=== PATIENT | female | born 1970 | race Caucasian/White ===

== ENCOUNTER 2017-09-27 00:19 | Observation (INO) ==
[2017-09-27] MEDS ORDERED: D5% in Lactated Ringers 1,000 ML IVC SCH (03:00)
[2017-09-27] MEDS ORDERED: *HR* LORazepam 2 MG/ML VIAL IVP ONE (03:13)
--- NOTE | 2017-09-27 03:45 | Internal Med History&Physical ---
Date of Encounter: 09/27/17 Time of Encounter: 03:42 Internal Medicine - H&P: HPI Chief complaint: Food stuck Admitted From: Intrahospital Transfer Plans for Post Hospital Care: Home History of present illness: Ms. Levine is a 47 year old woman with a history of anxiety disorder and esophageal spasms with prior episodes of food being stuck in her esophagus requiring endoscopic removal and dilation who presents on transfer from [place] where she presented stating that while she was eating chicken she felt that a piece was stuck in her chest and could not regurgitated back up and/ or does not go down and has been unable to keep anything down after that. She was not in acute distress and GI was consulted over the phone with the recommendation that she remain observed and will be seen in the morning for endoscopic removal. On my assessment she is lying comfortably in bed in no acute distress stating that she was previously prescribed diltiazem in the past for her esophageal spasms however she could not keep up with the frequency of dosing. She describes that pain and discomfort in the center of her chest and states that even though she tried to drink water hours ago it came back up and she could not keep it down. At this time she is just trying to remain calm and get some sleep. She denies abdominal pain at this time. Past Med Surg Social Fam HX - Past Medical History Medical history: GERD, hyperlipidemia, other Additional medical history: esophageal spasm Psychiatric history: anxiety, depression - Past Surgical History Surgical History: cholecystectomy Additional surgical history: lumbar fusion, c-s x2 - Social History Smoking Status: Former smoker Alcohol use: occasionally Drug use: none Internal Medicine - H&P: Meds Citalopram [CeleXA] 30 mg PO DAILY 09/26/17 [History] Omeprazole [PriLOSEC] 40 mg PO DAILY 09/26/17 [History] Simvastatin [Zocor] 30 mg PO DAILY 09/26/17 [History] 3 Allergy/AdvReac Type Severity Reaction Status Date / Time No Known Allergies Allergy Verified 09/26/17 21:29 All Systems PM: A 10-system review of systems was performed and is negative for pertinent findings except as documented above in the HPI. - Constitutional Vitals: Temp Pulse Resp BP Pulse Ox 98.3 F 73 14 125/86 96 09/27/17 02:02 09/27/17 02:02 09/27/17 02:02 09/27/17 02:02 09/27/17 02:02 Exam: Vitals: Reviewed General: Well developed female lying comfortably in bed in no acute distress Skin: Warm and supple HEENT: Moist mucous membranes. No conjunctivae pallor. Neck: No lymphadenopathy. No JVD. No carotid bruits. No palpable thyroid. Chest: Normal thoracic expansion. Normal breath sounds. Clear to auscultation. Heart: Normal S1 & S2; rhythmic. No rubs or murmurs. Abdomen: Non-distended, soft and non-tender to palpation. Extremities: No clubbing, cyanosis or edema. No calf tenderness. Normal distal pulses. Neurological: Awake, alert and oriented to person, place and time. No focal deficits. Psych: Affect appropriate. - Assessment and plan (1) Esophageal foreign body Current Visit: Yes Status: Acute Assessment and plan: Known esophageal spasms in the past and has suffered impactions previously and 2 dilatations. GI consult requested for endoscopy. Will obtain routine basic labs pre-procedure. May require calcium channel dean or sildenafil moving forward. Qualifiers: Encounter type: initial encounter Qualified Code(s): T18.108A - Unspecified foreign body in esophagus causing other injury, initial encounter (2) Dyspepsia Current Visit: Yes Status: Chronic Assessment and plan: Will place on IV PPI pending removal of foreign body. (3) Anxiety Current Visit: Yes Status: Chronic Assessment and plan: In the interim she cannot be on oral medications and she feels anxious. Will administer 0.5mg IVP lorazepam to help her stay calm. (4) Hyperlipemia Current Visit: Yes Status: Chronic Assessment and plan: On simvastatin at home which can be resumed upon discharge. Qualifiers: Hyperlipidemia type: unspecified Qualified Code(s): E78.5 - Hyperlipidemia , unspecified (5) DVT prophylaxis Current Visit: Yes Status: Acute Assessment and plan: SubQ heparin ordered. - Time Spent With Patient Total time spent is greater than 50% in coordination of care (as documented) at patient's floor/unit and/or counseling patient: 25 - 35 minutes
[2017-09-27] MEDS ORDERED: *HR* Nalbuphine 10 MG/ML AMPUL IVP ONE (04:13)
[2017-09-27 05:51] LABS: Basophils # 0.1 K/mcL (0.0-0.2); Basophils % 0.7 %; Eosinophils # 0.1 K/mcL (0.0-0.6); Hematocrit 37.2 % (35.3-44.9); Hemoglobin 11.8 g/dL (11.5-15.4); Immature Granulocytes % 0.3 % (0-4); Lymphocytes # 2.6 K/mcL (0.6-4.6); Lymphocytes % 23.2 %; Mean Corpuscular HGB Conc 31.7 g/dL (31.6-35.5); Mean Corpuscular Hemoglobin 26.3 pg (28.0-33.3); Mean Platelet Volume 10.8 fL (9.4-12.4); Monocytes # 0.5 K/mcL (0.0-1.3); Monocytes % 4.7 %; Neutrophils # 7.9 K/mcL (1.6-8.9); Platelet Count 382 K/mcL (140-400); Red Blood Count 4.48 M/mcL (3.82-4.97); Red Cell Distribution Width 13.7 % (11.5-14.5); Segmented Neutrophils % 70.1 %
[2017-09-27 05:56] LABS: INR 1.1; Prothrombin Time 12.2 Seconds (9.4-12.1)
[2017-09-27 05:59] LABS: Activated Partial Thrombo Time 33.4 Seconds (26.0-36.0)
[2017-09-27] MEDS ORDERED: *HR* Heparin 5,000 UNIT/ML VIAL SQ SCH (06:00)
--- NOTE | 2017-09-27 06:05 | Anesthesia Evaluation PreOp ---
Date of Encounter: 09/27/17 Time of Encounter: 06:02 - Past History Planned Operation: EGD Cardiac History: Denies any Significant Hx ( GERD, hyperlipidemia, other Additional medical history: esophageal spasm Psychiatric history: anxiety, depression - Past Surgical History Surgical History: cholecystectomy Additional surgical history: lumbar fusion, c-s x2 - Social History Smoking Status: Former smoker Alcohol use: occasionally), Hyperlipidemia Pulmonary History: Former smoker INTERNAL MEDICINE DOCTOR History: Denies Any Significant HX Other Medical History: GERD, Other (esophageal spasms, obese) Anesthesia History: No Prior Anesthetic Complications, Past Anesthesia ( cholecystectomy, lumbar fusion, c-s x2) : No Test: Negative (09/27/17) Alcohol Use: occasionally Drug use: none Medications and Allergies Citalopram [CeleXA] 30 mg PO DAILY 09/26/17 [History] Omeprazole [PriLOSEC] 40 mg PO DAILY 09/26/17 [History] Simvastatin [Zocor] 30 mg PO DAILY 09/26/17 [History] 3 Allergy/AdvReac Type Severity Reaction Status Date / Time No Known Allergies Allergy Verified 09/26/17 21:29 - Meds/Allergy Pre-op Review Medications Reviewed: Yes Allergies Reviewed: Yes Beta Blockers on Current Med List: No Anesthesia Results - Labs 09/27/17 05:06 Laboratory Tests 09/27/17 06:24 Urine Test Negative Anesthesia Exam Vital Signs/O2 Sat, Most Current Temp Pulse Resp BP Pulse Ox 98.3 F 73 14 125/86 96 09/27/17 02:02 09/27/17 02:02 09/27/17 02:02 09/27/17 02:02 09/27/17 02:02 - HEENT Pupil (Motor): Pupils equal, EOMI Mallampati: II Teeth: Normal Oral Opening: Greater than 3 - INTERNAL MEDICINE DOCTOR LOC: Oriented INTERNAL MEDICINE DOCTOR Motor: Normal RUE, Normal LUE, Normal RLE, Normal LLE, Normal Face INTERNAL MEDICINE DOCTOR Sensory: Normal: RUE, LUE, RLE, LLE, Face - Cardiac Rhythm: Regular Murmur: None JVD: No Carotid Bruit: No - Pulmonary Breath Sounds: bilateral Clear Respiratory Effort: Symmetrical Anesthesia Assess/Plan ASA Score: 2 Modified Morelia Scale for Level of Consciousness: Cooperative, oriented, and tranquil Anesthetic Plan: MAC Autologous Blood: Yes Monitoring Plan: Standard Monitors Recovery Plan: Other
[2017-09-27] MEDS ORDERED: *HR* Propofol 200 MG/20 ML VIAL IVP ONE (06:26)
[2017-09-27] MEDS ORDERED: Lidocaine -MPF 2% 2 ML VIAL ONE (06:44)
[2017-09-27] MEDS ORDERED: Ondansetron 4 MG/2 ML VIAL ONE (07:02)
[2017-09-27] MEDS ORDERED: Dexamethasone 4 MG/ML VIAL ONE (07:02)
--- NOTE | 2017-09-27 07:19 | Anesthesia Evaluation Post Op ---
Date of Encounter: 09/27/17 Time of Encounter: 07:18 - Vital Signs Vital Signs: HR-69 BP-91/53 R-16 Sat-98 - Lungs Lungs: Clear Ascult./Percussion - Airway Airway: Non-obstructed - Cardiovascular Regular Rate - Mental Status Mental Status: Alert & Oriented, Answers Appropriately - Pain Pain Scale: 0 Pain Scale used: Numeric (1 - 10) - Nausea Vomiting Nausea Vomiting: Not Present - Hydration Hydration: NPO, Has not voided - Discharge PostOp Status: Transfer Patient to floor
[2017-09-27 07:22] LABS: BUN/Creatinine Ratio 13 (6-26); Blood Urea Nitrogen 10 mg/dL (6-20); Calcium 9.6 mg/dL (8.6-10.3); Carbon Dioxide 27 mEq/L (23-29); Chloride 105 mEq/L (98-107); Glucose 109 mg/dL (70-105); Osmolality,Calculated 286 (280-300); Potassium 3.8 mEq/L (3.5-5.1); Sodium 138 mEq/L (136-145); eGFR For Non-African Americans > 60 (> 60)
[2017-09-27] MEDS ORDERED: Pantoprazole 40 MG VIAL IVP SCH (09:00)
--- NOTE | 2017-09-27 09:01 | Gastroenterology Consult Note ---
Date of Encounter: 09/27/17 Time of Encounter: 06:00 - Assessment and plan (1) Esophageal foreign body Current Visit: Yes Status: Acute Qualifiers: Encounter type: initial encounter Qualified Code(s): T18.108A - Unspecified foreign body in esophagus causing other injury, initial encounter (2) Anxiety Current Visit: Yes Status: Chronic (3) Dyspepsia Current Visit: Yes Status: Chronic (4) Dysphagia Current Visit: Yes Status: Acute Qualifiers: Qualified Code(s): R13.10 - Dysphagia, unspecified - Time Spent With Patient Total time spent is greater than 50% in coordination of care (as documented) at patient's floor/unit and/or counseling patient: 25 - 35 minutes (Dysphagia) GI History of Present Illness - Data of Consult Patient: new to practice Requesting Physician: Constantine Hayes MD - Consult Narrative Reason for consult: Food stuck in the esophagus History of present illness: Ms. Levine is a 47 year old female who was in her usual state of health until about 1 PM yesterday when she ate a piece of chicken and found it and felt that it stuck. She eventually went to the [facility] where she was interviewed and given a milligram of glucagon with no success. She was able to keep her saliva down but unable to drink any water. This history of any chest pain fever or chills or shortness of breath. No history of dizziness or syncope. On close questions questioning she said that she have this she has had this happen a few times but every time she has been able to upchuck and get to the problem. She has had it appears two upper endoscopies in the past and with subsequent esophageal dilation - the most recent one about a year ago. She is on omeprazole 40 mg a day. Her Rao brought her to the emergency room at [facility] last night. I was called and requested patient be transferred to [place] to be admitted on for observation on the hospitalist service and arrangements were made to do an upper endoscopy at term 6:30 in the operating room this morning. She was in no acute distress throughout the night No history of hematemesis or melena no cardiac or respiratory or pulmonary history no problems with sedation/anesthesia in the past Past Med Surg Social Fam HX - Past Medical History Medical history: GERD, hyperlipidemia, other Additional medical history: esophageal spasm Psychiatric history: anxiety, depression - Past Surgical History Surgical History: cholecystectomy Additional surgical history: lumbar fusion, c-s x2 - Social History Smoking Status: Former smoker Alcohol use: occasionally Drug use: none - Gastrointestinal Gastrointestinal: Present: as per HPI Additional Comments: Dysphagia - Constitutional Constitutional: as per HPI, fatigue - Constitutional Vitals: Temp Pulse Resp BP Pulse Ox 98.0 F 70 16 129/66 97 09/27/17 06:46 09/27/17 06:46 09/27/17 06:46 09/27/17 06:46 09/27/17 06:46 General appearance: Present: cooperative, A&O X 3, pleasant, obese, answers questions appropriately - Head Head exam: Present: atraumatic, normal inspection, normocephalic - Eye Eye exam: Present: EOMI, normal appearance, PERRL, sclera anicteric - Neck Neck exam general surgery: Present: full ROM, normal inspection, supple, trachea midline - Respiratory Respiratory exam: Present: CTAB - Cardiovascular Cardiovascular exam: Present: RRR, +S1, +S2 - GI/Abdominal GI/Abdominal exam: Present: soft, no peritoneal signs Additional comments: Non tender, no organomegaly - Rectal Rectal exam: Present: deferred - Extremities Exam Extremities exam: Present: normal inspection - Neurological Exam Neurological exam: Present: alert, no focal deficits Results - Labs CBC & Chem 7: 09/27/17 05:06 09/27/17 05:06 Labs: Last Result Calcium 9.6 mg/dL (8.6-10.3) 09/27/17 05:06 Entire Visit Hgb 11.8 g/dL (11.5-15.4) 09/27/17 05:06 Hct 37.2 % (35.3-44.9) 09/27/17 05:06 PT 12.2 Seconds (9.4-12.1) H 09/27/17 05:06 - ABG ABG results: PT/INR, D-dimer PT 12.2 Seconds (9.4-12.1) H 09/27/17 05:06 Consult Discharge Plan - Plan Instructions: Upper Gastrointestinal Endoscopy (DC) Additional Instructions: Today at 06:30 am to remove foreign body (peice of chicken possibly) in the OR with MAC. Arrangements made already. Informed consent obtained for the same. Answered all questions. Risks and benefits explained. Referrals: Tenisha Diaz MD [Primary Care Provider] -
[2017-09-27 10:34] VITALS: BP 106/73
--- NOTE | 2017-09-27 11:17 | Discharge Summary ---
Orders not resulted at time of discharge: EGD report pending Date of Encounter: 09/27/17 Time of Encounter: 08:50 - Discharge Diagnosis (1) Esophageal foreign body Priority: Primary Status: Acute Comments: GI has evaluated the patient. S/p EGD - foreign body (piece of chicken) was pushed further into the stomach Esophageal dilatation not done today. Patient will need follow-up with GI as outpatient Stable for discharge home today. Return if symptoms worsen. Continue regular diet as tolerated Qualifiers: Encounter type: initial encounter Qualified Code(s): T18.108A - Unspecified foreign body in esophagus causing other injury, initial encounter (2) Dysphagia Priority: Primary Status: Acute Comments: Acute on chronic dysphagia - with h/o esophageal dilatation in the past Esophageal dilatation not done today. Outpatient follow-up with GI. Return if symptoms worsen. Qualifiers: Dysphagia type: esophageal phase Qualified Code(s): R13.10 - Dysphagia, unspecified (3) Anxiety Priority: Secondary Status: Chronic Comments: Chronic anxiety, stable Continue home dose of Celexa (4) Dyspepsia Priority: Secondary Status: Chronic Comments: Continue Protonix on discharge Hospital course: Ms. Levine is a 47 year old female with past medical history of esophageal spasm, anxiety, depression, GERD and hyperlipidemia. Patient presented to the ED with complaints of food being stuck in her esophagus. Patient stated that she was eating a piece of chicken and felt that it was stuck in her chest and could not regurgitated back up. Patient was unable to keep anything down after that. Patient was transferred from [place] for GI evaluation. GI has evaluated the patient. EGD was done today. Foreign-body was pulled further into the stomach. Patient did not require any further esophageal dilatation today. GI has recommended outpatient follow-up. Patient is now back to baseline. No other acute events or complications during her stay in the hospital. Patient's labs and vitals are all fairly within normal limits. Exam of this morning. Patient is awake and alert. Not in any distress. Denies chest pain or shortness of breath. Denies abdominal pain or vomiting. No fever. Hemodynamically stable. Patient states she feels better, wants to go home today. Patient and her family have been explained about her condition and plan of care in detail. They understood and agreed. No unanswered questions. Advised to return if symptoms worsen. Stable for discharge home today. Follow up with primary care physician and GI as outpatient. Discharge discussed with: patient, family - Time Spent with Patient Total time spent providing and/or coordinating discharge services: Less than 30 minutes - Discharge Medications Prescriptions: Pantoprazole Sodium 40 mg PO DAILY #30 tablet. Home Medications: Citalopram [CeleXA] 30 mg PO DAILY 09/26/17 [History] Simvastatin [Zocor] 20 mg PO DAILY 09/26/17 [History] Pantoprazole Sodium 40 mg PO DAILY #30 tablet. 09/27/17 [Rx] Allergies/Adverse Reactions: 3 Allergy/AdvReac Type Severity Reaction Status Date / Time No Known Allergies Allergy Verified 09/26/17 21:29 Date of admission: 09/27/17 01:43 Primary care physician: Tenisha Diaz MD Consults: 09/27/17 02:59 Consult to Gastroenterology [CONS] Routine Consulting Provider: Gastroenterology Elsie Reason for Consult: patient with food impaction Call Completed: Yes Discharging clinician: Murali Savage Anticipated date of discharge: 09/27/17 - Constitutional Vitals: Temp Pulse Resp BP Pulse Ox 97.9 F 77 15 106/73 94 09/27/17 10:31 09/27/17 10:31 09/27/17 10:31 09/27/17 10:31 09/27/17 10:31 General appearance: Present: cooperative, A&O X 3, pleasant, no acute distress, answers questions appropriately - Head Head exam: Present: atraumatic - Eye Eye exam: Present: EOMI - ENT ENT exam: Present: mucous membranes moist - Respiratory Respiratory exam: Present: CTAB. Absent: rhonchi, tachypnea - Cardiovascular Cardiovascular exam: Present: RRR, +S1, +S2 - GI/Abdominal GI/Abdominal exam: Present: soft, no peritoneal signs. Absent: distended, tenderness - Extremities Exam Extremities exam: Absent: calf tenderness, pedal edema, tenderness - Neurological Exam Neurological exam: Present: alert, oriented X3, no focal deficits. Absent: speech deficit - Patient Status Disposition: Home, Self-Care Condition: Good Functional capacity at discharge: independent ambulation Overall status at discharge: patient is back to baseline - Discharge Instructions Instructions: Upper Gastrointestinal Endoscopy (DC) Follow Up With: Homero Garsia MD [Partnered Physician] - (Web request entered, office will call patient with date and time of appointment. Thank you) Tenisha Diaz MD [Primary Care Provider] - 10/03/17 3:00 pm Additional Instructions: Today at 06:30 am to remove foreign body (peice of chicken possibly) in the OR with MAC. Arrangements made already. Informed consent obtained for the same. Answered all questions. Risks and benefits explained. - Diet and Activity Activity: increase activity as tolerated Diet: advance to your usual diet
== END 2017-09-27 14:54 | disposition home or self-care (01) ==
LOC: 3ANU
PROVIDERS: ADMIT Family Medicine; ATTEND Family Medicine
PROC: ENDOEFB (2017-09-27 06:30)